=== PATIENT | female | born 1980 | race Caucasian/White ===

== ENCOUNTER 2025-08-30 09:37 | Outpatient (AMB) | payer MEDICARE, MEDICAID, SELFPAY ==
--- OUTSIDE RECORDS SUMMARY | 2025-06-02 17:30 | XMS_ITS ---
Author Organization [facility] Address [address] [place] [address] Care Team Providers Care Leather Scraper Name Role Phone Abbey Rockwell Primary Care [...] Active Encounters Encounter Location Date Provider Diagnosis [address] [address] 06/02/2025 Nimo Piña Plan Of Treatment Medication Medication Name Sig Start Date Stop Date Notes Sertraline HCl 100 MG 1 tab(s) orally on ce a day; Duration: 30 day(s) 06/20/2013 Progress Notes * ROC GAUTAMDOB:1980 (44 yo F)Acc No.[id number]:06/02/2025 Patient: ROC REYES Provider: Nimo Piña :1980 A ge:44 Y S ex:Female Date:06/02/2025 Address:[address] [place] [address], [place] [facility] Pcp:Abbey Rockwell Subjective: * Chief Complaints: * 1 . Multum To Medispan Conversion Encounter. * Medical History: * Medications: T aking Ibuprofen 800 MG Tablet 1 tab(s) orally bid , Taking Albuterol Sulfate HFA 108 (90 Base) MCG/ACT Aerosol Solution 2 puff(s) inhaled 4 times a day Objective: * Vitals: Assessment: Plan: * Treatment: * * Electronic signature of Prov ider Migration on 08/30/2025 at 11:15 AM EDT Sign off status: Pending * Provider: Nimo armenta Migration Date: 0 06/02/2025 Generated for Patty gilliland/Theresa/Shawn on: 1 11:15 AM EDT
--- NOTE | 2025-08-30 09:46 | A.SPINEOV_ITS ---
Vital Signs 08/30/25 09:54 Height 5 ft 6 in Weight 112 lb BMI 18.1 Intake Visit Reasons: Spondylolisthesis Intake Note: Ms. Munoz is here today c/o back pain difficulty with walking. Malthouse Laborer Required: No Allergies No Known Allergies Allergy (Verified 08/30/25 09:57) Physical Exam Vital Signs: BMI result Body Mass Index 18.1 Assessment & Plan Assessment & Plan (1) Lumbar radiculopathy: Code(s): M54.16 - Radiculopathy, lumbar region Category: Medical Plan Marilee is a pleasant 44 year old female with a fairly complex past medical history. She comes in today as a self-referral for evaluation of severe low back pain and shooting pain into her bilateral lower extremities. She reports that her back pain 1st became an issue back in 2011 when she was evaluated for severe acute onset low back pain in his shooting pain into her lower extremities. When describing her pain she runs her hand and axial fashion across her lower back and then down the posterior aspect of her bilateral legs terminating near the bottom of her feet. MRI imaging of the lumbar spine at the time showed a disc herniation at L5-S1 with grade 1 spondylolisthesis. She reports that she was encouraged to pursue conservative treatments, and surgery was not recommended. From [id number] she states that she is able to mitigate her pain with cannabis oil and Tylenol. Unfortunately about a year ago she began experiencing intermittent flare-ups of her severe low back pain once more. In addition to this, she reports that over the years she had essentially diffuse pain throughout her body, prompting evaluation by rheumatology and several other specialties. She reports that her pain is about an 8/10 constant throughout the day with flare-ups to 10/10. She states that her pain is worse when extending her back, and ambulating. It is somewhat relieved by sitting and resting. She reports occasional numbness/burning associated with the shooting pain down her legs. She has attempted cortisone injections in her back, and physical therapy in the past without significant relief of her symptoms. She denies any bow el/bladder incontinence or saddle anesthesia. PMH: Coronary artery disease, elevated lipoprotein a, atherosclerosis, ankylosing spondylitis HLA B27 positive, history of sacral and pelvic fracture, rheumatoid arthritis. Social hx: The patient does not smoke, reports she uses cannabis oil daily and throughout the day. Denies any other substance use. Medications: Humira, Repatha, rosuvastatin, Tylenol. Allergies: NKDA. Physical exam: The patient has about 4/5 strength with bilateral iliopsoas testing which increases her pain. The rest of her strength is 5/5. She ambulates with the assistance of a cane, and does so fairly slowly. She does not appear to have a spastic or antalgic gait when ambulating. She has no significant sensational deficits to light touch during examination. Her reflexes are slightly hyperactive in the bilateral patella, but 2+ normal elsewhere. (-) Lofton's, (-) clonus, (-) bilateral straight leg raise. Imaging review: The patient brought in several imaging discs. She has had MRI / CT imaging of essentially her entire body. The only lumbar spine MRI I was able to find was last done in 2011. It showed a paracentral disc herniation at L5-S1 with a grade 1 spondylolisthesis seen at this level. Impression: Pleasant 44-year-old female with a fairly complex past medical history, presenting today for severe axial low back pain and shooting pain down her bilateral lower extremities. Her last MRI imaging was from 2011 so it is a fairly low utility to evaluate her current issue. It does sound like there may be a worsening issue at L5-S1 that could be contributing to her symptoms. This matches the dermatomal distribution of her pain. I would like to order a new MRI of the lumbar spine to rule out worsening degeneration at L5-S1, or recurre nt disc herniation. I will follow up with the patient by phone call once her results are read by Radiology. Thank you for allowing us to care for your patient. The total time spent with this visit with this patient was 45 minutes reviewing history, physical exam, MRI imaging review, and implementation of treatment plan or further diagnostic testing Johnathan Paige MD,PhD [facility] Orders: Orders XR lumbar spine 4V min Today M43.10 - Spondylolisthesis, site unspecified MR lumbar spine wo con Today M54.16 - Radiculopathy, lumbar region Coding Level of Care Code New Pt Level 4 (25357) Diagnoses Lumbar radiculopathy M54.16
[2025-08-30 09:54] VITALS: BMI 18.1
--- OUTSIDE RECORDS SUMMARY | 2025-08-30 11:16 | XMS_ITS | Clinical Summary ---
Author Organization [facility] Address [address] [place] [address] Phone Care Team Providers Care Propulsion Engineer Name Role Phone Physician, Pcp Unknown Primary Care Provider Jayne vailable Social History Tobacco Use Types Packs/Day Years Used Date Smoking Tobacco: Never Assessed Comments Unknown Sex and Gender Information Value Date Recorded Sex Assigned at Not on file Legal Sex Female 3:44 PM EDT Gender Identity Not on file Sexual Orientation Not on file Plan of Treatment Health Maintenance Due Date Last Done Comments Breast Cancer Screening 1980 DTaP,Tdap,and Td Vaccines (1 - Tdap) 1999 Hepatitis B Vaccines (1 of 3 - 19+ 3-dose series) 1999 Cervical Cancer Screening: P ap Smear 2001 HPV Vaccines (1 - 3-dose SCD M series) 2007 Depression Screening 11/01/2024 HIV Screening 04/12/2025 Hepatitis C Screening 04/12/2025 Medicare Annual Wellness Visit 04/12/2025 Social Influencers of Health Screening 04/12/2025 COVID-19 Vaccine (1 - 2023-2 5 season) 2025 Influenza Vaccine (#1) 2025 RSV Immunization Adult Patie nts (1 - 1-dose 75+ series) 2055 HIB Vaccines Aged Out No longer eligi ble based on patient's age to complete this topic Hepatitis A Vaccines Aged Out No long er eligible based on patient's age to complete this topic IPV Vaccines Aged Out No longer eligi ble based on patient's age to complete this topic MMR Vaccines Aged Out No longer eligi ble based on patient's age to complete this topic Meningococcal ACWY Vaccine Aged Out N o longer eligible based on patient's age to complete this topic Meningococcal B Vaccine Aged Out No l onger eligible based on patient's age to complete this topic Pneumococcal Vaccine: Pediat rics (0 to 5 Years) and At-Risk Patients (6 to 49 Years) Aged Out No longer eligible b ased on patient's age to complete this topic RSV Immunization Patients Un ashok 20 months Aged Out No longer eligible b ased on patient's age to complete this topic Varicella Vaccines Aged Out No longer eligible based on patient's age to complete this topic Insurance MEDICARE MEDICAID - [place] Care Teams Propulsion Engineer Relationship Specialty Start Date End Date Physician, Pcp Unknown PCP - General 04/25/25
--- OUTSIDE RECORDS SUMMARY | 2025-08-30 11:16 | XMS_ITS | Clinical Summary ---
Author Organization [facility] Address [facility] [email or web address] [address] [address] Phone Care Team Providers Care System Support Specialist Name Role Phone Ashwini Izaguirre DO Primary Care Provider Rober Lynn DMD Unavailable [phone] Allergies Active Allergy Reactions Criticality Noted Date Comments Amoxicillin Hives High 12/02/2024 And swelling around eyes Azithromycin Hives High 12/02/2024 Doxycycline Nausea And Vomiting Low 12/02/2024 Latex Hives High 12/02/2024 Levofloxacin Nausea And Vomiting Low 12/02/2024 Dizziness and shaking Medications adalimumab (HUMIRA) 40 mg/0.4 mL pen kit citrate free Inject 40 mg under the skin every 7 days. Active albuterol 90 mcg/actuation inhaler Inhale 1 puff into the lungs every 6 (six) hours as needed. Active buPROPion (WELLBUTRIN XL) 150 MG ER 24 hr tablet Take 450 mg by mouth every morning. Active EPINEPHrine 0.3 mg/0.3 mL auto-injector Inject 0.3 mg into the muscle once as needed. 11/21/2024 Active escitalopram oxalate (LEXAPRO) 20 MG tablet Take 20 mg by mouth daily. Active lifitegrast (XIIDRA) 5 % ophthalmic solution Place 1 drop into each eye 2 (two) times a day. Active VYVANSE 50 mg capsule Take 50 mg by mouth daily. 10/10/2024 Active loratadine (CLARITIN) 10 mg tablet Take 10 mg by mouth daily. 03/16/2025 Active MULTIVIT,MIN52-F [id number] ORAL Active rosuvastatin (CRESTOR) 20 MG tablet Take 40 mg by mouth every morning. 03/30/2025 Active Active Problems No known active problems Encounters Date Type Department Care Team Description 05/30/2025 1:16 PM EDT - 05/30/2025 11:59 PM EDT Hospital Encounter [facility] head men's golf coach [address] [facility], [address] [place] [address] Rober Lynn, DMD Discharge Disposition: Home or Self Care 05/30/2025 Ancillary Orders [facility] [address] [place] [address] Rober Lynn, BERNIE 05/30/2025 Ancillary Orders [facility] [address] [place] [address] Rober Lynn DMD 05/30/2025 Ancillary Orders [facility] [address] [place] [address] Rober Lynn DMD 05/30/2025 Prep for Surgery [facility] head men's golf coach [address] [facility], [address] [place] [address] Rober Lynn, DMD Arthropathy of both temporomandibular joints (Primary Dx) from Last 3 Months Family History Medical History Relation Comments No Known Problems Brother No Known Problems Father Brain cancer Maternal Aunt Schizophrenia Mother No Known Problems Sister Relation Status Comments Brother Alive Father Alive Maternal Aunt Mother Sister Alive Social History Tobacco Use Types Packs/Day Years Used Date Smoking Tobacco: Former Cigarettes Smokeless Tobacco: Never Tobacco Cessation:Counseling Given: Not Answered Comments:Quit in 2016, almost 2ppd Alcohol Use Standard Drinks/Week Comments Not Currently 0 (1 standard drink = 0.6 oz pur e alcohol) Education Answer Date Recorded Are you interested in more education? Not on simon e 11/02/2024 Are you concerned about learning? Not on file 11/02/2024 No 11/02/2024 No 11/02/2024 Digital Access Answer Date Recorded No 11/02/2024 No 11/02/2024 Reliable internet access at home? Not on file 11/02/2024 Device with a working camera? Not on file Comments Unknown Sex and Gender Information Value Date Recorded Sex Assigned at Not on file Legal Sex Female 8:58 AM EST Gender Identity Not on file Sexual Orientation Not on file Last Filed Vital Signs Vital Sign Reading Time Taken Comments Blood Pressure 138/75 05/17/2025 1:07 PM EDT Pulse 87 05/17/2025 1:07 PM EDT Temperature - - Respiratory Rate - - Oxygen Saturation 100% 05/17/2025 1:07 PM EDT Inhaled Oxygen Concentration - - Weight 50.3 kg (111 lb) 05/17/2025 1:06 PM EDT Height - - Body Mass Index - - Plan of Treatment Upcoming Encounters Date Type Department Care Team (Latest Contact Info) Description 10/11/2025 4:40 PM EST Telemedicine [facility] at [address] [address] Marty Swann MD, PhD [address] [place] [phone] [email or web address] 03/22/2026 Procedure Pass [facility] PERIOPERATIVE DEPT [address] [place] [phone] 03/22/2026 11:01 AM EDT Hospital Encounter [facility] PERIOPERATIVE DEPT [address] [place] [phone] Rober Lynn, DMD [address] [place] [phone] [email or web address] 03/22/2026 11:01 AM EDT - 03/22/2026 2:12 PM EDT Surgery [facility] PERIOPERATIVE DEPT [address] [place] [phone] Rober Lynn, DMD [address] [place] [phone] [email or web address] TEMPOROMANDIBULAR JOINT 05/02/2026 4:20 PM EDT Office Visit [facility] [place] [address] [place] [address] Tyler Wilkinson MD [address] [place] [address] Division of Rheumatology, [place] [address] [email or web address] Scheduled Procedures Name Priority Associated Diagnoses Date/Ti me ARTHROSCOPY TEMPOROMANDIBULAR JOINT Arthropathy of both temporomandibular joints 03/22/2026 11:01 AM EDT MODIFIER SIMPLE Arthropathy of both temporomandibular joints 03/22/2026 11:01 AM EDT APPLICATION ARCH BARS Arthropathy of both temporomandibular joints 03/22/2026 11:01 AM EDT Health Maintenance Due Date Last Done Comments Adult Td,Tdap Booster 1980 COVID-19 VACCINE (#1) 1985 DEPRESSION SCREENING 1992 SMOKING Hx and SMOKELESS TOB ACCO SCREENING 1993 HEPATITIS C SCREENING 1998 HIV ONE-TIME SCREENING (18-6 5 YEARS) 1998 PNEUMOCOCCAL VACCINES (0-49 years) (1 of 2 - PCV) 1999 PAP SMEAR 2001 MAMMOGRAM 2020 INFLUENZA VACCINE (#1) 2025 HEPATITIS A VACCINES Aged Out No long er eligible based on patient's age to complete this topic HIB VACCINES Aged Out No longer eligi ble based on patient's age to complete this topic MENINGOCOCCAL VACCINES (ACWY) Aged Out No longer eligible based on patient's age to complete this topic MENINGOCOCCAL VACCINES (B) Aged Out N o longer eligible based on patient's age to complete this topic Medical Devices Not on file Insurance MEDICARE PART [place] & [place] MED[place] PART A & B [facility] MEDICARE PART A & B Care Teams System Support Specialist Relationship Specialty Start Date End Date Ashwini Izaguirre DO [address] [place] [address] [address] [place] [address] PCP - General Internal Medicine 11/02/24 Rober Lynn, DMD [address] [place] [phone] [email or web address] head men's golf coach 02/12/25 Additional Source Comments The information contained in this document represents components of the legal health record. It is not the complete legal health record.[facility]
--- OUTSIDE RECORDS SUMMARY | 2025-08-30 11:16 | XMS_ITS | Patient Health Record ---
Author Organization [facility] Address [address] [place] [address] Care Team Providers Care Coal Briquette Machine Operator Name Role Phone Abbey Rockwell Primary Care Provider [phone] Migration, Provider Unavailable Unavailable Reason For Referral No Information Medications Medication SIG (Take, Route, Frequency, Duration) Notes Start Date End Date Status Albuterol Sulfate HFA 108 (90 Base) MCG/ACT 2 puff(s) inhaled 4 times a day; Duration: 30 day(s) 03/23/2013 Activ e Sertraline HCl 100 MG 1 tab(s) orally on ce a day; Duration: 30 day(s) 06/20/2013 Active Ibuprofen 800 MG 1 tab(s) orally bid; Duration: 30 day(s) 01/17/2013 Active Problems Problem Type SNOMED Code ICD Code Onset Dates Problem Status W/U Status Risk Notes Problem Hyperlipidemia (97353871) Hyperlipidemia (272.4) Active confirmed Encounters Encounter Location Date Provider Diagnosis [address] [address] 06/02/2025 P rovider Migration Plan Of Treatment Pending Test Test Name Order Date STREP A ASSAY W/OPTIC 03/23/2013 Insurance Providers Payer Name Payer Address Payer Phone Subscriber Number Group Number Insured Name Patient Relationship to Insured Coverage Start Date Coverage End Date MEDIC[place] B-[place]: [facility] [address] [place] [address] [phone] [id number] ROC GAUTAM Self - patient is the insured Medical (General) History Medical History History ICD Code anxiety fibromyalgia, chronic pain i ssues-had trial of Cecelia, Dr. Garcia, Dr. Prado, Dr. Quiñones, NEPM depression smoker low back pain, s/p fall down stairs in 12/2010, with S 5 fracture-has been seen by Farzad Gan h/o experimentation with cece gs/polysubsatnce as gathered form [facility]-evalaution by Dr. evelina Avalos in 2006-ETOH/PSA : The patient reports that she used to drink, but alcohol was never her main drug of choice. She experimented with drugs when younger. She was experimenting with methamphetamines, speed, cocaine, pot, mushrooms, pain experimenting with drugs when she got with her child. She has been clean and sober since MRI LS spine 01/2012-Small ce ntral herniation of the L5-S1 disc, not compressing the thecal sac or the nerve roots-s/p facet joint injections at pain clinic. migraine Surgical History Surgery Date(Month/Year) ganglion cyst removal L wrist ?2004 tubal ligation 2011
== END 2025-08-30 10:24 | disposition home or self-care (01) ==
LOC: HO.HNS 09:38
PROVIDERS: PCP Internal Medicine; Visit Provider Physician Assistant
DX: M54.16 Radiculopathy, lumbar region (principal)
CPT/HCPCS: 99204

== ENCOUNTER 2025-08-30 09:37 | Outpatient (REF) | payer MEDICARE, MEDICAID, SELFPAY ==
--- NOTE | ~2025-08-30 | XR_ITS ---
EXAMINATION: XR LUMBOSACRAL SPINE CLINICAL INFORMATION: M43.10 - Spondylolisthesis, site unspecified COMPARISON: None available. TECHNIQUE: Lateral projections in neutral, flexion and extension position. AP view. FINDINGS: No acute cortical disruption or malalignment. No lytic or blastic lesions. No malalignment during flexion and or extension position. Metallic coiling is in the anterior prevertebral compartment of the lower lumbosacral. XR/XR lumbar spine 4V min IMPRESSION: No acute fracture or listhesis or instability. Electronically signed by: Hiren Stafford MD 08/30/2025 10:55 AM EDT
== END 2025-08-30 09:38 | disposition home or self-care (01) ==
LOC: HO.HOSX 09:37
PROVIDERS: PCP Internal Medicine; Visit Provider Physician Assistant
DX: M54.16 Radiculopathy, lumbar region (principal)
CPT/HCPCS: 72110; 99202

== ENCOUNTER → 2025-08-30 10:32 | Outpatient (BNV) | payer MEDICARE, MEDICAID, SELFPAY | PROVIDERS: PCP Internal Medicine; Visit Provider Radiology Diagnostic Radiology | DX: M43.16 Spondylolisthesis, lumbar region (principal) | CPT/HCPCS: 72110 ==

== ENCOUNTER 2025-09-30 11:13 | Outpatient (REF) | payer MEDICARE, MEDICAID, SELFPAY ==
--- OUTSIDE RECORDS SUMMARY | 2025-06-02 16:30 | XMS_ITS ---
Author Organization [facility] Address [address] [place] [id number] Care Team Providers Care Fish Machine Feeder Name Role Phone Abbey Rockwell Primary Care Provider Migration, Provider Unavailable Unavailable REASON FOR VISIT Multum To Medispan Conversion Encounter Medications Medication SIG (Take, Route, Frequency, Duration) Notes Start Date End Date Status Albuterol Sulfate HFA 108 (90 Base) MCG/ACT 2 puff(s) inhaled 4 times a day; Duration: 30 day(s) 03/23/2013 Activ e Sertraline HCl 100 MG 1 tab(s) orally on ce a day; Duration: 30 day(s) 06/20/2013 Active Ibuprofen 800 MG 1 tab(s) orally bid; Duration: 30 day(s) 01/17/2013 Active Encounters Encounter Location Date Provider Diagnosis [address] [address] 06/02/2025 Nimo Piña Plan Of Treatment Medication Medication Name Sig Start Date Stop Date Notes Sertraline HCl 100 MG 1 tab(s) orally on ce a day; Duration: 30 day(s) 06/20/2013 Progress Notes * ROC GAUTAMDOB:1980 (45 yo F)Acc No.[id number]:06/02/2025 Patient: ROC REYES Provider: Nimo Piña :1980 A ge:44 Y S ex:Female Date:06/02/2025 Address:[address] [place] [address], [place] [id number] Pcp:Abbey Rockwell Subjective: * Chief Complaints: * 1 . Multum To Medispan Conversion Encounter. * Medical History: * Medications: T aking Ibuprofen 800 MG Tablet 1 tab(s) orally bid , Taking Albuterol Sulfate HFA 108 (90 Base) MCG/ACT Aerosol Solution 2 puff(s) inhaled 4 times a day Objective: * Vitals: Assessment: Plan: * Treatment: * * Electronic signature of Prov ider Migration on 09/30/2025 at 11:23 AM EST Sign off status: Pending * Provider: Nimo armenta Migration Date: 0 06/02/2025 Generated for Patty gilliland/Theresa/Shawn on: 11/30/2024 11:23 AM EST
--- NOTE | ~2025-09-30 | MR_ITS ---
CLINICAL HISTORY: M54.16 - Radiculopathy, lumbar region MR lumbar spine without gadolinium Comparison: None Findings: Normal alignment. No acute fracture or pathologic bone lesion. Cauda equina and conus medullaris within normal limits. Degenerative changes at L4-L5 with broad-based disc protrusion results in mild canal stenosis, as well as focal central disc protrusion resulting in moderate canal stenosis. Paraspinous musculature intact. IMPRESSION: No acute lumbar spine findings. Degenerative changes most pronounced at L5-S1 with moderate canal stenosis. This document has been electronically signed by: Robert Pritchard MD on 10/01/2025 12:58:23
--- OUTSIDE RECORDS SUMMARY | 2025-09-30 11:24 | XMS_ITS | Patient Health Record ---
Author Organization [facility] Address [address] [place] [address] Care Team Providers Care News Operations Manager Name Role Phone Abbey Rockwell Primary Care Provider Migration, Provider Unavailable Unavailable Reason For Referral [...] Problem Status W/U Status Risk Notes Problem Information temporarily unavailable Hyperlipidemia (272.4) Active confirmed Encounters Encounter Location Date Provider Diagnosis [address] [address] 06/02/2025 P rovider Migration Plan Of Treatment Pending Test Test Name Order Date STREP A ASSAY W/OPTIC 03/23/2013 Insurance Providers Payer Name Payer Address Payer Phone Subscriber Number Group Number Insured Name Patient Relationship to Insured Coverage Start Date Coverage End Date [place]: [facility] [address] [place] [address] [id number] ROC GAUTAM Self - patient is the insured Medical (General) History Medical History History ICD Code anxiety fibromyalgia, chronic pain i ssues-had trial of Cecelia, Dr. Garcia, Dr. Prado, Dr. Quiñones, NEPM depression smoker low back pain, s/p fall down stairs in 12/2010, with S 5 fracture-has been seen by Farzad Gan h/o experimentation with cece gs/polysubsatnce as gathered form [facility]-evalaution by Dr. evelina Avalos in 2006-ETOH/PSA [...]
--- OUTSIDE RECORDS SUMMARY | 2025-09-30 11:24 | XMS_ITS | Encounter Summary ---
Author Organization [facility] Address [facility] [place] [address] [address] Phone Care Team Providers Care Stroboscope Operator Name Role Phone Ashwini Izaguirre DO Primary Care Provider Rober Lynn DMD Unavailable Encounter Details Date Type Department Care Team (Late st Contact Info) Description 09/10/2025 Procedure Pass [facility], Ct Scan - [address] [address] Social History Tobacco Use Types Packs/Day Years Used Date Smoking Tobacco: Former Cigarettes Smokeless Tobacco: Never Comments:Quit in 2016, óscar teresa 2ppd Alcohol Use Standard Drinks/Week Comments Not Currently 0 (1 standard drink = 0.6 oz pur e alcohol) Education Answer Date Recorded Are you interested in more education? Not on simno e 11/02/2024 Are you concerned about learning? [...] on file Sexual Orientation Not on file documented as of this encounter Plan of Treatment Upcoming Encounters Date Type Department Care Team (Latest Contact Info) Description 10/11/2025 4:40 PM EST Telemedicine [facility] [address] [place] [address] Marty Swann MD, PhD [address] [place] [address] [email or web address] 03/22/2026 Procedure Pass [facility] [address] [place] [phone] 03/22/2026 11:01 AM EDT Hospital Encounter [facility] [address] [place] [phone] Rober Lynn, DMD 55 [facility] [address] [place] [address] [email or web address] 03/22/2026 11:01 AM EDT - 03/22/2026 2:12 PM EDT Surgery [facility] [address] [place] [address] Rober Lynn, DMD 55 [facility] [address] [place] [id number] [email or web address] ARTHROSCOPY TEMPOROMANDIBULAR JOINT 05/02/2026 4:20 PM EDT Office Visit [facility] [address] [place] [address] Tyler Wilkinson MD [address] [facility] Division of Rheumatology, [place] [address] [email or web address] Scheduled Procedures Name Priority Associated Diagnoses Date/Ti me ARTHROSCOPY TEMPOROMANDIBULAR JOINT Arthropathy of both temporomandibular joints 03/22/2026 11:01 AM EDT MODIFIER SIMPLE Arthropathy of both temporomandibular joints 03/22/2026 11:01 AM EDT APPLICATION ARCH BARS Arthropathy of both temporomandibular joints 03/22/2026 11:01 AM EDT documented as of this encounter Visit Diagnoses Not on filedocumented in this encounter Care Teams Stroboscope Operator Relationship Specialty Start Date End Date Ashwini Izaguirre DO 55 [facility] [address] [place] [address] PCP - General Internal Medicine 11/02/24 Rober Lynn, BERNIE 55 [facility] [address] [place] [address] [email or web address] lead manufacturing engineering tech 02/12/25 documented as of this encounter Additional Source Comments The information contained in this document represents components of the legal health record. It is not the complete legal health record.[facility]
--- OUTSIDE RECORDS SUMMARY | 2025-09-30 11:24 | XMS_ITS | Clinical Summary ---
Author Organization [facility] Address Replaced by [facility] [employer] [address] [address] Phone Care Team Providers Care Rectifier Operator Name Role Phone Ashwini Izaguirre DO Primary Care Provider Rober Lynn DMD Unavailable [phone] Allergies Active Allergy Reactions Criticality Noted Date [...] mg by mouth daily. 03/16/2025 Active MULTIVIT,MIN52-F [id number] ORAL Active rosuvastatin (CRESTOR) 20 MG tablet Take 40 mg by mouth every morning. 03/30/2025 Active Active Problems No known active problems Encounters Date Type Department Care Team Description 09/21/2025 11:34 AM EST - 09/21/2025 11:59 PM EST Hospital Encounter [facility], Ct Scan [address] [address] Rober Lynn DMD Discharge Disposition: Home or Self Care 09/10/2025 Procedure Pass [facility], Ct Scan [address] [address] 09/10/2025 Orders Only [facility] casting operator helper [address] [facility], [address] Floor, [address] [place] [address] Armida Cueto, BERNIE, [place] Arthropathy of temporomandibular joint, unspecified laterality (Primary Dx) from Last 3 Months Family [...] Info) Description 10/11/2025 4:[address] [facility] [address] [address] Marty Swann MD, PhD [address] [place] [address] [email or web address] 03/22/2026 Procedure Pass [facility] PERIOPERATIVE DEPT [address] [place] [phone] 03/22/2026 11:01 AM EDT Hospital Encounter [facility] PERIOPERATIVE DEPT [address] [place] [phone] Rober Lynn, DMD [address] [place] [phone] [email or web address] 03/22/2026 11:01 AM EDT - 03/22/2026 2:12 PM EDT Surgery [facility] PERIOPERATIVE DEPT [address] [place] [phone] Rober Lynn, DMD [address] [place] [phone] [email or web address] ARTHROSCOPY TEMPOROMANDIBULAR JOINT 05/02/2026 4:20 PM EDT Office Visit [facility] [place] [address] [place] [address] Tyler Wilkinson MD 75 [facility] Division of Rheumatology, [place] [address] (work) [email or web address] Scheduled Procedures Name Priority Associated Diagnoses Date/Ti me ARTHROSCOPY TEMPOROMANDIBULAR JOINT Arthropathy of both temporomandibular joints 03/22/2026 11:01 AM EDT MODIFIER SIMPLE Arthropathy of both temporomandibular joints 03/22/2026 11:01 AM EDT APPLICATION ARCH BARS Arthropathy of both temporomandibular joints 03/22/2026 11:01 AM EDT Health Maintenance Due Date Last Done Comments Adult Td,Tdap Booster 1980 LIPID PANEL 1980 COVID-19 VACCINE (#1) 1985 DEPRESSION SCREENING 1992 SMOKING Hx and SMOKELESS TOB ACCO SCREENING 1993 HEPATITIS C SCREENING 1998 HIV ONE-TIME SCREENING (18-6 5 YEARS) 1998 PNEUMOCOCCAL VACCINES (0-49 years) (1 of 2 - PCV) 1999 PAP SMEAR 2001 MAMMOGRAM 2020 INFLUENZA VACCINE (#1) 2025 COLOGUARD 2025 COLONOSCOPY 2025 COLORECTAL CANCER SCREENING 2025 FIT TEST 2025 FOBT 2025 SIGMOIDOSCOPY 2025 VIRTUAL COLONOSCOPY 2025 HEPATITIS A VACCINES Aged Out No [...] this topic Medical Devices Not on file Procedures Procedure Name Priority Date/Time Associated Diagnosis Comments CT FACE (TMJ) WITHOUT CONTRAST (BILATERAL) Routine 09/21/2025 12:00 PM EST Arthropathy of temporomandibular joint, unspecified laterality from Last 3 Months Results * CT FACE (TMJ) WITHOUT CONTRAST (BILATERAL) (09/21/2025 12:00 PM EST) Anatomical Region Laterality Modality Face Computed Tomogra phy 09/25/2025 10:4 0 AM EST Impressions 09/25/2025 10:42 AM EST Mild degenerative changes of the right temporomandibular joint. Narrative 09/25/2025 10:[address] FACE (TMJ) WITHOUT CONTRAST (BILATERAL) Referring clinician's provided indication for this examination in [facility]: * TMJ pain or limited movement TECHNIQUE: Multidetector-row CT of the temporomandibular joints was performed without intravenous contrast using tailored dose modulation techniques. Images were reconstructed in the axial, coronal, and sagittal planes. COMPARISON: MRI FACE OUTSIDE (NO INTERPRETATION) FINDINGS: Right temporomandibular joint: There is mild joint space narrowing with small osteophytes of the mandibular condyle. Left temporomandibular joint: Normal alignment. No joint space narrowing, subchondral sclerosis or marginal osteophytes. Other: No acute fracture. Patent paranasal sinuses. Procedure Note Poonam Barroso MD - 09/25/2025 CT FACE (TMJ) WITHOUT CONTRAST (BILATERAL) Referring clinician's provided indication for this examination in [facility]: *TMJ pain or limited movement TECHNIQUE: Multidetector-row CT of the temporomandibular joints wasperformed without intravenous contrast using tailored dose modulationtechniques. Images were reconstructed in the axial, coronal, and sagittalplanes. COMPARISON: MRI FACE OUTSIDE (NO INTERPRETATION) FINDINGS: Right temporomandibular joint: There is mild joint space narrowing withsmall osteophytes of the mandibular condyle. Left temporomandibular joint: Normal alignment. No joint space narrowing,subchondral sclerosis or marginal osteophytes. Other: No acute fracture. Patent paranasal sinuses. 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 Rober Lynn DMD IMG CT HEAD/NECK Final Resul t from Last 3 Months Insurance [place] & B Care Teams Rectifier Operator Relationship Specialty Start Date End Date Ashwini Izaguirre DO [address] [place] [address] [address] [place] [address] PCP - General Internal Medicine 11/02/24 Rober Lynn, BERNIE 55 [facility] [address] [place] [address] [email or web address] casting operator helper 02/12/25 Additional Source Comments The information contained in this document represents components of the legal health record. It is not the complete legal health record.[facility]
--- OUTSIDE RECORDS SUMMARY | 2025-09-30 11:24 | XMS_ITS | Clinical Summary ---
Author Organization [facility] Address [address] [place] [address] Phone Care Team Providers Care International Exchange Coordinator Name Role Phone Physician, Pcp Unknown Primary [...] Last Done Comments Breast Cancer Screening 1980 Colorectal Cancer Screening: Colonoscopy 1980 DTaP,Tdap,and Td Vaccines (1 - Tdap) 1999 Hepatitis B Vaccines (1 of 3 - 19+ 3-dose series) 1999 Cervical Cancer Screening: P ap Smear 2001 HPV Vaccines (1 - 3-dose SCD M series) 2007 Depression Screening 11/01/2024 HIV Screening 04/12/2025 Hepatitis C Screening 04/12/2025 Medicare Annual Wellness Visit 04/12/2025 Social Influencers of Health Screening 04/12/2025 COVID-19 Vaccine ( - 2024-2 6 season) 2025 Influenza Vaccine (#1) 2025 RSV [...] Insurance MEDICARE MEDICAID - [place] Care Teams International Exchange Coordinator Relationship Specialty Start Date End Date Physician, Pcp Unknown PCP - General 04/25/25
== END 2025-09-30 11:14 | disposition home or self-care (01) ==
LOC: HO.MRI 11:13
PROVIDERS: PCP Internal Medicine; Visit Provider Physician Assistant
DX: M54.16 Radiculopathy, lumbar region (principal)
CPT/HCPCS: 72148